=== PATIENT | male | born 1995 | race Two or more races ===

== ENCOUNTER 2022-10-20 16:28 | Emergency (ER) | payer BC ==
[~2022-10-20] VITALS: Ht 185.4 cm; Wt 63.5 kg
--- NOTE | 2022-10-20 17:17 | NUR ---
ABDOMINAL PAIN FOR "MAYBE 5 OR 6 YRS"
[2022-10-20 17:20] VITALS: BP 121/77
--- NOTE | 2022-10-20 17:20 | NUR ---
CALLED PT FOR AVAILABLE BED, NO RESPONSE
--- NOTE | 2022-10-20 18:00 | NUR ---
CALLED PT FOR AVAILABLE BED, NO RESPONSE
--- NOTE | 2022-10-20 18:18 | NUR ---
CALLED TO ROOM IN,NO ANSWER
== END 2022-10-20 18:19 | disposition left against medical advice (07) ==
LOC: ER 16:30
DX: R10.9 Unspecified abdominal pain (principal); Z53.21 Procedure and treatment not carried out due to patient leaving prior to being seen by health care provider